=== PATIENT | female | born 1990 | race Caucasian/White ===

== ENCOUNTER 2019-09-04 21:14 | Emergency (ER) | payer OTHER, SELFPAY ==
[2019-09-04 21:16] VITALS: BP 141/97; PULSE 80; RESP 18; TEMP 37.1; O2SAT 99; BMI 20.5
[2019-09-04] MEDS: 0.9% Normal Saline 1,000 ML 1000 ML IV (21:56)
[2019-09-04] MEDS: Ketorolac 15 MG/ML Vial IV (21:57)
[2019-09-04 22:17] LABS: Absolute Lymphocyte Count 2.11 X10^3/uL (0.83-4.51); Absolute Neutrophil Count 7.6 X10^3/uL (2.0-7.7); Basophil# 0.03 X10^3/uL; Basophil% 0.3 % (0-1); Eosinophil# 0.11 X10^3/uL; Hematocrit 36.4 % (37-47); Hemoglobin 11.6 g/dL (12.0-15.0); Lymphocyte # 2.11 X10^3/ul (4.0); Mean Corp Hgb Conc 31.9 g/dL (32-36); Mean Corpuscular Hgb 29.8 pg (27.0-32.0); Mean Corpuscular Volume 93.6 fL (81-99); Mean Platelet Vol. 11.3 fl (6.2-12.0); Monocyte# 0.65 X10^3/uL; Monocyte% 6.2 % (0-10); NRBC Flagged by Analyzer 0 % (0-5); Neutrophil # 7.62 X10^3/uL (2.7-7.7); Neutrophil % 72.2 % (47-70); Platelet Count 210 K/mm3 (150-450); RBC Distribution Width CV 12.5 % (11.6-14.6); RBC Distribution Width SD 43.1 fl (35.1-43.9); Red Blood Count 3.89 M/mm3 (4.2-5.4); White Blood Count 10.6 K/mm3 (4.4-11.0)
[2019-09-04 22:24] LABS: International Normalized Ratio 1.1; Prothrombin Time (Protime)PT. 13.9 SECONDS (11.7-14.9)
[2019-09-04 22:25] LABS: Partial Thromboplast Time 26.7 Seconds (24.1-36.2)
[2019-09-04 22:31] LABS: Internal QC Validated? YES +Cl - CLEAR BKGD
[2019-09-04 22:32] LABS: Pregnancy, Serum, hCG Quali. POSITIVE Negative
[2019-09-04 22:33] LABS: Anion Gap 6 (5-15); BUN 13 mg/dL (7-18); BUN/Creat Ratio 19.3 RATIO (10-20); Calcium,Total 8.6 mg/dL (8.5-10.1); Chloride 110 mmol/L (98-107); Creatinine, Serum 0.67 mg/dL (0.55-1.02); EST Glomerular Filtration Rate 111 mL/min (>60); Est Glom Filt Rate - Afr Amer 134 mL/min (>60); Estimated Creatinine Clearance 107.42 ml/min; Glucose 89 mg/dL (74-106); Potassium 3.6 mmol/L (3.5-5.1); Sodium Level 140 mmol/L (136-145)
--- NOTE | 2019-09-04 22:42 | US_ITS ---
We are attempting to reach an attending provider to discuss findings. An addendum with communication details will be sent when the communication is complete. STUDY: FIRST TRIMESTER OBSTETRICAL ULTRASOUND REASON FOR EXAM: Female, 29 years old BLEEDING PELVIC PAIN HCG 722 LMP UNKNOWN LMP: Unknown. TECHNIQUE: Transabdominal and Transvaginal TECHNICAL QUALITY: Adequate. PRIOR ULTRASOUND: None . FINDINGS: There is no demonstrated intrauterine gestational sac. There is no demonstrated embryo ( pole). The estimated gestation age (EGA) by LMP: LMP is unknown. The estimated gestation age (EGA) by US: Gestational sac not visualized. The uterus measures 10.2 x 7.9 x 6.4 cm. There is no demonstrated uterine fibroid. The cervix is closed. The endometrium measures 3.7 mm. There is fluid along the lower uterine segment/cervix with some heterogeneous masslike structure at the lower uterine segment. This could represent blood clots. An ovoid fluid collection seen at the level of the cervix with questionable peripheral yolk sac highly compatible an abnormally located gestational sac and suggestive of in progress. The bilateral ovaries are not visualized. There is no fluid in the cul de sac. US/Transvaginal w/Preg US IMPRESSION: No intrauterine seen. Abnormal fluid collection with the peripheral yolk sac structure combination of findings highly concerning for in progress. Possible blood clots in the region of the lower cervix, cannot exclude products of conception at this level. Other etiologies such as ectopic cannot be entirely excluded in the appropriate clinical context. Clinical correlation recommended along with serial hCG measurements and short interval ultrasound . Electronically Signed: Beatrice Duong MD at 0:55 EST , Service support ,
[2019-09-04 23:12] LABS: hCG Titer Quant., Serum 722 mIU/mL (1-3)
[2019-09-04 23:16] VITALS: BP 129/74; PULSE 82; RESP 16; O2SAT 100
--- NOTE | 2019-09-05 | POC_PTH ---
PATIENT: KERI ROSARIO LOC: ED U#:[id number] AGE/SX: 29/F ROOM: RE09/04/[address]: Dr. Ramone Wood MD : 1990 BED: DIS: 09/05/2019 SPEC #: [id number] RECD: 09/05/19 14:15 STATUS: SHANELL YUDI #: [id number] SHERITA: 09/05/19 00:[address]: Ramone Wood DEPT: SURGICAL PATHOLOGY RECD BY: Sathya Brown ENTERED: 09/05/19 14:15 SP TYPE: PROD CONC OTHR DR: Brock Rasheed Tissues: Product of conception, NOS Procedures: Surgery Specimen Level IV HEADER OPERATION: Not noted PRE-OP DIAGNOSIS: Vaginal bleeding TISSUE SUBMITTED: Products of conception MICROSCOPIC DIAGNOSIS Products of conception: Decidua and immature chorionic villi (products of conception). SJ:vivi 09/06/19 MICROSCOPIC DESCRIPTION Slides are reviewed. GROSS DESCRIPTION Received is one container labeled with the patient's name and not further designated. The specimen consists of an irregular fragment of pink-flowers cyst measuring 9.5 x 5 x 2 cm. parts are not grossly recognized. Mystery Shopper sections are submitted in two cassettes. / AM:vivi 09/05/19 TC:5 CPT: 22446
--- NOTE | 2019-09-05 00:17 | ED.VISSUMM ---
- ER Visit Summary Date of Service: 09/05/19 Chief Complaint: Vaginal bleeding History of Present Illness: The patient is a 29 F who goes to [facility]. She does not have an SED [employer]. She is a G2, P2. She reports that she was started on an oral contraceptive pill, the name which she does not know, approximately 2-1/2 months ago. She is only supposed to have a period every 3 months. She states that she has vaginal bleeding that began 2 days ago. It is much heavier than her typical bleeding. She reports that she is having to change a pad every 30 minutes. She also complains of cramping suprapubic pain is 10-10 at worst and 7 out of 10 currently. Nothing makes this better or worse. She denies any vaginal discharge. No dysuria or frequency. No fever or chills. Physical Examination: Vitals: Stable. Afebrile. General: Well-nourished and well-developed. Head: Normocephalic atraumatic. Neck: Supple, no lymphadenopathy. No JVD. Nontender. Cardiovascular: Regular rate and rhythm. No murmurs. Respiratory: No respiratory distress. Clear to auscultation bilaterally. Abdominal: Soft, mild suprapubic tenderness to palpation, nondistended, normal bowel sounds. No guarding, rebound, or peritoneal signs. Back: Nontender. Extremities: Nontender, no edema. Skin: Normal color, no rash. Neurologic: Alert and oriented ?3. Cranial nerves II through XII are intact. Normal strength and sensation. Psych: Normal affect. Test Results: CBC shows an H&H of 11.6 and 36.4, segmented neutrophils 72. Chem-7 shows a chloride of 110. Coags are normal. test is positive. Quantitative hCG is 722. Blood type is a positive. Emergency Department Course and Treatment: Patient was given a liter of normal saline. Prior to return of her test she was given a dose of Toradol IV. She is resting comfortably. She refused further pain medications. Treatment Plan: At this time the patient's ultrasound is pending. She will be turned over the care of the oncoming doctor. If this does not show a ectopic the plan will be for the patient to follow-up with Dr. Ramirez in 48 hours after getting a repeat quantitative hCG. Dr. Ramirez will be contacted tonight. Disposition: Pending Impression: 1. Vaginal bleeding. 2. . This note was generated with Guver[employer]ation software. It may contain incorrect words, spelling, and punctuation that were not noted in review of the chart prior to signing ED Disposition - Plan for ED Patient: Instructions: POSSIBLE MISCARRIAGE (Threatened ) Referrals: Katia Ramirez MD [STAFF PHYSICIAN] - 2 Days
[2019-09-05 00:55] LABS: Pathology Specimen OB SEE PATHOLOGY REPORT
--- NOTE | 2019-09-05 00:55 | ED.VISSUMM ---
- ER Visit Summary Date of Service: 09/05/19 Chief Complaint: [] History of Present Illness: The patient is a 29 F [] Physical Examination: [] Test Results: [] Emergency Department Course and Treatment: [] Treatment Plan: [] Disposition: [] Impression: [] This note was generated with [employer] software. It may contain incorrect words, spelling, and punctuation that were not noted in review of the chart prior to signing ED Disposition - Plan for ED Patient: Instructions: Miscarriage Referrals: Shaka De Santiago MD [STAFF PHYSICIAN] - 2 Days Additional Instructions: Dr. De Santiago will see you in the office tomorrow or for repeat evaluation.
== END 2019-09-05 01:13 | disposition home or self-care (01) ==
LOC: ED 22:02
PROVIDERS: Emergency Provider Emergency Medicine; PCP Family Medicine
DX: O03.9 Complete or unspecified spontaneous abortion without complication (principal); Z79.3 Long term (current) use of hormonal contraceptives
CPT/HCPCS: 76817; 80048; 84702; 84703; 85025; 85610; 85730; 86900; 86901; 88305; 96361; 96374; 99283; J7030; A4216